=== PATIENT | female | born 1990 | race American Indian/Alaskan Native ===

== ENCOUNTER 2016-12-07 07:08 | Inpatient (IN) | payer MEDICAID, SELFPAY ==
[2016-12-07] MEDS ORDERED: Ondansetron 4 MG/2 ML SDV IVPUSH PRN (07:33)
[2016-12-07] MEDS ORDERED: Nalbuphine 20 MG/1 ML Amp IVPUSH PRN (07:33)
[2016-12-07] MEDS ORDERED: Sodium Chloride 0.9% 10 ML Syringe FLUSH PRN (07:33)
--- NOTE | 2016-12-07 07:35 | PCM.LDHP ---
L&D History of Present Illness - General Date of Service: 12/07/16 Admit Problem/Dx: Patient Status Order with Admit Dx/Problem 12/07/16 07:33 Patient Status [ADT] Routine Admission Diagnosis/Problem Admission Diagnosis/Problem Normal labor Source of Information: Patient History Limitations: Reports: No Limitations - History of Present Illness Introduction:: Patient is a 26 y/o presenting at 38 2/7 wks in labor. Contractions started earlier this AM. Was closed in clinic last week and now 4 cm per nursing report. otherwise uncomplicated. - Related Data Allergies/Adverse Reactions: Allergies Allergy/AdvReac Type Severity Reaction Status Date / Time No Known Allergies Allergy Verified 11/22/14 18:37 Home Medications: Home Meds PNV95/Ferrous Fumarate/FA [ Multivitamins] 1 each PO DAILY 11/23/14 [ History] Ferrous Sulfate 325 mg PO WITHBREAKFAST tablet 11/24/14 [Rx] Ibuprofen [Motrin] 600 mg PO Q4H PRN #30 tablet 11/24/14 [Rx] Lanolin [Lansinoh HPA] 1 applic TOP ASDIRECTED PRN #30 crm 11/24/14 [Rx] Past Medical History - Past Health History Medical/Surgical History: Denies Medical/Surgical History [employer] History: Reports: : 5 Para: 4 LMP (Approximate): Social & Family History - Tobacco Use Smoking Status *Q: Never Smoker Second Hand Smoke Exposure: No - Alcohol Use Alcohol Use History: No Days Per Week of Alcohol Use: 0 - Recreational Drug Use Recreational Drug Use: No H&P Review of Systems - Review of Systems: Review Of Systems: See Below General: Reports: No Symptoms Pulmonary: Reports: No Symptoms Cardiovascular: Reports: No Symptoms Gastrointestinal: Reports: No Symptoms Genitourinary: Reports: No Symptoms Musculoskeletal: Reports: No Symptoms L&D Exam - Exam Exam: See Below - Vital Signs Weight: 74.979 kg - OB Specific Contraction Intensity: Moderate Movement: Active Heart Tones: Present Heart Tones per Min: 145 Heart Rate (FHR) Variability: Moderate (6-25 bmp) Presentation: Vertex - Pradhan Score Pradhan Score Cervix Position: Midposition Pradhan Score Consistency: Soft Pradhan Score Effacement: 51-70% Pradhan Score Dilation: 3-4 cm (Per nursing) Pradhan Score 's Station: -2 Pradhan Score Total: 8 - Exam General: Alert, Oriented, Cooperative Lungs: Clear to Auscultation, Normal Respiratory Effort Cardiovascular: Regular Rate, Regular Rhythm GI/Abdominal Exam: Soft, Non-Tender Genitourinary: Normal external exam Extremities: Normal Inspection Skin: Warm, Dry, Intact - Problem List (1) 38 weeks gestation of SNOMED Code(s): 41825038 ICD Code: Z3A.38 - 38 WEEKS GESTATION OF Status: Acute Current Visit: Yes (2) Active labor SNOMED Code(s): 64259156 ICD Code: [id number] - Status: Acute Current Visit: No Problem List Initiated/Reviewed/Updated: Yes Orders Last 24hrs: Active Orders 24 hr Category Date Time Status Patient Status [ADT] Routine ADT 12/07/16 07:33 Ordered Activity as Tolerated [RC] PFP Care 12/07/16 07:33 Ordered Communication Order [RC] ASDIRECTED Care 12/07/16 07:33 Ordered Heart Tones [RC] ASDIRECTED Care 12/07/16 07:33 Ordered Notify Provider [RC] PFP Care 12/07/16 07:33 Ordered Notify Provider [RC] PRN Care 12/07/16 07:33 Ordered Peripheral IV Care [RC] . DIRECTED Care 12/07/16 07:33 Ordered Vital Signs [RC] PER UNIT ROUTINE Care 12/07/16 07:33 Ordered Regular Diet [DIET] Diet 12/07/16 Breakfast Ordered CBC W/O DIFF,HEMOGRAM [HEME] Stat Lab 12/07/16 07:33 Ordered TYPE AND SCREEN [BBK] Stat Lab 12/07/16 07:33 Ordered Lactated Ringers [Ringers, Lactated] 1,000 ml Med 12/07/16 07:45 Ordered IV ASDIRECTED Nalbuphine [Nubain] Med 12/07/16 07:33 Ordered 10 mg IVPUSH Q2H PRN Ondansetron [Zofran] Med 12/07/16 07:33 Ordered 4 mg IVPUSH Q4H PRN Oxytocin/Lactated Ringers [Pitocin in LR 10 Units/1,000 Med 12/07/16 07:45 Ordered ML] 10 unit in 1,000 ml IV .CONTINUOUS Sodium Chloride 0.9% [Saline Flush] Med 12/07/16 07:33 Ordered 10 ml FLUSH ASDIRECTED PRN Electronic Heart Tones Ext w TOCO [WOMSER] Oth 12/07/16 07:33 Ordered Routine Electronic Heart Tones Internal [WOMSER] Per Unit Ot 12/07/16 07:33 Ordered Routine Peripheral IV Insertion Adult [OM.PC] Routine Ot 12/07/16 07:33 Ordered Resuscitation Status Routine Resus Stat 12/07/16 07:33 Ordered Assessment/Plan Comment:: 26 y/o at 38 2/7 wks presents in labor * CBC and T&S * GBS negative, no need for antibiotics * Prefers epidural for pain management * Anticipate
[2016-12-07] MEDS ORDERED: Lactated Ringers 1,000 ML IV SCH (07:45)
[2016-12-07] MEDS ORDERED: Oxytocin/Lactated Ringers 10 UNIT/1,000 ML BAG IV SCH (07:45)
--- NOTE | 2016-12-07 11:42 | PCM.DEL ---
L & D Note - General Info Date of Service: 12/07/16 - Delivery Note Labor: Spontaneous Delivery Outcome: Livebirth Delivery Method: Spontaneous Vaginal Delivery Delivery Mode: Spontaneous Presentation: Right Occiput Anterior (KEESHA) Nuchal Cord: None Anesthesia Type: None Amniotic Fluid Description: Clear Episiotomy Type: None Laceration: None Placenta: Intact, Spontaneous Cord: 3 Vessels Estimated Blood Loss: 300 Score 1 min: 8 Score 5 min: 9 Delivery Comments (Free Text/Narrative):: Patient found to be complete and began pushing. With maternal pushing effort head delivered from an KEESHA presentation. No nuchal cord present. With gentle downward traction the shoulders and body delivered. Infant placed on maternal abdomen. Cord clamped and cut. Cord blood obtained. Placenta allowed time to separate and expelled. Inspection of the perineum showed no lacerations - Patient Data Vitals - Most Recent: Last Vital Signs Temp 36.4 C 12/07/16 07:33 Pulse 76 12/07/16 07:33 Resp 18 12/07/16 07:33 BP 125/73 12/07/16 07:33 Pulse Ox Weight - Most Recent: 74.979 kg Lab Results Last 24 Hours: Laboratory Results - last 24 hr 12/07/16 12/07/16 Range/Units 07:50 07:50 WBC 8.50 (3.98-10.04) K/mm3 RBC 3.84 L (3.98-5.22) M/mm3 Hgb 10.9 L (11.2-15.7) gm/L Hct 32.9 L (34.1-44.9) % MCV 85.7 (79.4-94.8) fl MCH 28.4 (25.6-32.2) pg MCHC 33.1 (32.2-35.5) g/dl RDW Std Deviation 50.3 H (36.4-46.3) fL Plt Count 161 L (182-369) K/mm3 MPV 11.4 (9.4-12.3) fl Blood Type O POSITIVE Gel Antibody Screen Negative Med Orders - Current: Current Medications Lactated Ringer's (Ringers, Lactated) 1,000 mls @ 100 mls/hr IV ASDIRECTED CRISTINO Last Admin: 12/07/16 07:57 Dose: 500 mls/hr Oxytocin/Lactated Ringer's (Pitocin In Lr 10 Units/1,000 Ml) 10 unit in 1,000 mls @ 500 mls/hr IV .CONTINUOUS CRISTINO Last Admin: 12/07/16 11:26 Dose: 500 mls/hr Nalbuphine HCl (Nubain) 10 mg IVPUSH Q2H PRN PRN Reason: Pain (moderate 4-6) Ondansetron HCl (Zofran) 4 mg IVPUSH Q4H PRN PRN Reason: Nausea/Vomiting Sodium Chloride (Saline Flush) 10 ml FLUSH ASDIRECTED PRN PRN Reason: Keep Vein Open - Problem List & Annotations (1) 38 weeks gestation of SNOMED Code(s): 90603132 Code(s): Z3A.38 - 38 WEEKS GESTATION OF Status: Acute Current Visit: Yes (2) Active labor SNOMED Code(s): 51840879 Code(s): GEQ1829 - Status: Acute Current Visit: No (3) Vaginal delivery SNOMED Code(s): 152956375 Code(s): O80 - ENCOUNTER FOR FULL-TERM UNCOMPLICATED DELIVERY Status: Acute Current Visit: Yes - Problem List Review Problem List Initiated/Reviewed/Updated: Yes - My Orders Last 24 Hours: My Active Orders 12/07/16 07:33 Patient Status [ADT] Routine Activity as Tolerated [RC] PFP Communication Order [RC] ASDIRECTED Heart Tones [RC] ASDIRECTED Notify Provider [RC] PFP Notify Provider [RC] PRN Peripheral IV Care [RC] . DIRECTED Vital Signs [RC] PER UNIT ROUTINE Nalbuphine [Nubain] 10 mg IVPUSH Q2H PRN Ondansetron [Zofran] 4 mg IVPUSH Q4H PRN Sodium Chloride 0.9% [Saline Flush] 10 ml FLUSH ASDIRECTED PRN Electronic Heart Tones Ext w TOCO [WOMSER] Routine Electronic Heart Tones Internal [WOMSER] Per Unit Routine Peripheral IV Insertion Adult [OM.PC] Routine Resuscitation Status Routine 12/07/16 07:45 Lactated Ringers [Ringers, Lactated] 1,000 ml IV ASDIRECTED Oxytocin/Lactated Ringers [Pitocin in LR 10 Units/1,000 ML] 10 unit in 1,000 ml IV .CONTINUOUS 12/07/16 11:37 Patient Status Manage Transfer [TRANSFER] Routine 12/07/16 Breakfast Regular Diet [DIET] - Assessment Assessment:: 26 y/o G5 now P5005 PPD#0 from at 38 2/7 wks - Plan Plan:: * Routine cares * Encourage breast feeding * Discharge home in 1-2 days
[2016-12-07] MEDS ORDERED: Acetaminophen 325 MG Tab PO PRN (11:46)
[2016-12-07] MEDS ORDERED: Docusate Sodium 100 MG Cap PO PRN (11:46)
[2016-12-07] MEDS ORDERED: Lanolin 100% Cream 7 GM Tube TOP PRN (11:46)
[2016-12-07] MEDS ORDERED: Witch Hazel Medicated Pads 100/Jar TOP PRN (11:46)
[2016-12-07] MEDS ORDERED: Benzocaine/Menthol 20%-0.5% Spray 56 GM Canister TOP PRN (11:46)
[2016-12-07] MEDS: Ibuprofen 600 MG Tab PO PRN ×2 (12:24→20:16)
--- NOTE | 2016-12-08 07:39 | PCM.DCSUM1 ---
Discharge Summary - Discharge Data Discharge Date: 12/08/16 Discharge Disposition: Home, Self-Care 01 Condition: Good - Discharge Diagnosis/Problem(s) (1) 38 weeks gestation of SNOMED Code(s): 34145712 ICD Code: Z3A.38 - 38 WEEKS GESTATION OF Status: Acute Current Visit: Yes (2) Active labor SNOMED Code(s): 75809102 ICD Code: [id number] - Status: Acute Current Visit: No (3) Vaginal delivery SNOMED Code(s): 841435517 ICD Code: O80 - ENCOUNTER FOR FULL-TERM UNCOMPLICATED DELIVERY Status: Acute Current Visit: Yes - Patient Summary/Data Complications: None Consults: None Recommended Follow-up Testing/Procedures: Follow up in 5-6 weeks for check Hospital Course: 26 y/o presented at 38 2/7 wks presented in labor. She did well without the need for augmentation. She underwent an uncomplicated . See delivery note. she did well and was discharged home on PPD#1 - Patient Instructions Diet: Regular Diet as Tolerated Activity: As Tolerated Activity, Other: Pelvic Rest for 6 weeks Driving: May Drive Today Showering/Bathing: May Shower Showering/Bathing, Other: May Bathe Notify Provider of: Fever, Increased Pain, Swelling and Redness, Drainage, Nausea and/or Vomiting - Discharge Plan Home Medications: Home Meds PNV95/Ferrous Fumarate/FA [ Multivitamins] 1 each PO DAILY 11/23/14 [ History] Docusate Sodium [Colace] 100 mg PO BID PRN cap 12/07/16 [Rx] Ibuprofen [IJD: Ibuprofen] 600 mg PO Q6H PRN tablet 12/07/16 [Rx] Referrals: Mauricio Rodriguez MD [Primary Care Provider] - (5 weeks for check ) - Discharge Summary/Plan Comment DC Time >30 min.: No - Patient Data Vitals - Most Recent: Last Vital Signs Temp 36.7 C 12/08/16 03:38 Pulse 74 12/08/16 03:38 Resp 16 12/08/16 03:38 BP 108/74 12/08/16 03:38 Pulse Ox 99 12/08/16 03:38 Weight - Most Recent: 74.979 kg I&O - Last 24 hours: Intake & Output 12/07/16 12/08/16 12/08/16 22:59 06:59 14:59 Intake Total 240 Balance 240 Lab Results - Last 24 hrs: Laboratory Results - last 24 hr 12/07/16 12/07/16 Range/Units 07:50 07:50 WBC 8.50 (3.98-10.04) K/mm3 RBC 3.84 L (3.98-5.22) M/mm3 Hgb 10.9 L (11.2-15.7) gm/L Hct 32.9 L (34.1-44.9) % MCV 85.7 (79.4-94.8) fl MCH 28.4 (25.6-32.2) pg MCHC 33.1 (32.2-35.5) g/dl RDW Std Deviation 50.3 H (36.4-46.3) fL Plt Count 161 L (182-369) K/mm3 MPV 11.4 (9.4-12.3) fl Blood Type O POSITIVE Gel Antibody Screen Negative Med Orders - Current: Current Medications Acetaminophen (Tylenol) 650 mg PO Q4H PRN PRN Reason: mild pain or fever Benzocaine/Menthol (Dermoplast Pain Relief [place]) 0 gm TOP ASDIRECTED PRN PRN Reason: Perineal Comfort Measure Docusate Sodium (Colace) 100 mg PO BID PRN PRN Reason: Constipation Emollient Ointment (Lansinoh Hpa) 0 gm TOP ASDIRECTED PRN PRN Reason: Sore Nipples Ibuprofen (Motrin) 600 mg PO Q6H PRN PRN Reason: Mild pain or fever Last Admin: 12/07/16 20:16 Dose: 600 mg Witch Faye (Tucks) 1 pad TOP ASDIRECTED PRN PRN Reason: Hemorrhoid pain Discontinued Medications Lactated Ringer's (Ringers, Lactated) 1,000 mls @ 100 mls/hr IV ASDIRECTED CRISTINO Last Admin: 12/07/16 07:57 Dose: 500 mls/hr Oxytocin/Lactated Ringer's (Pitocin In Lr 10 Units/1,000 Ml) 10 unit in 1,000 mls @ 500 mls/hr IV .CONTINUOUS CRISTINO Last Admin: 12/07/16 11:26 Dose: 500 mls/hr Nalbuphine HCl (Nubain) 10 mg IVPUSH Q2H PRN PRN Reason: Pain (moderate 4-6) Ondansetron HCl (Zofran) 4 mg IVPUSH Q4H PRN PRN Reason: Nausea/Vomiting Sodium Chloride (Saline Flush) 10 ml FLUSH ASDIRECTED PRN PRN Reason: Keep Vein Open *Q Meaningful Use (DIS) - VTE *Q VTE Criteria *Q: - Stroke *Q Stroke Criteria *Q: - AMI *Q AMI Criteria *Q:
--- NOTE | 2016-12-08 07:39 | PCM.PNPP ---
- General Info Date of Service: 12/08/16 Functional Status: Reports: Pain Controlled, Tolerating Diet, Ambulating, Urinating - Review of Systems General: Reports: No Symptoms Pulmonary: Reports: No Symptoms Cardiovascular: Reports: No Symptoms Gastrointestinal: Reports: No Symptoms Genitourinary: Reports: No Symptoms Musculoskeletal: Reports: No Symptoms Neurological: Reports: No Symptoms - Patient Data Vital Signs - Most Recent: Last Vital Signs Temp 36.7 C 12/08/16 03:38 Pulse 74 12/08/16 03:38 Resp 16 12/08/16 03:38 BP 108/74 12/08/16 03:38 Pulse Ox 99 12/08/16 03:38 Weight - Most Recent: 74.979 kg I&O - Last 24 Hours: Intake & Output 12/07/16 12/08/16 12/08/16 22:59 06:59 14:59 Intake Total 240 Balance 240 Lab Results - Last 24 Hours: Laboratory Results - last 24 hr 12/07/16 12/07/16 Range/Units 07:50 07:50 WBC 8.50 (3.98-10.04) K/mm3 RBC 3.84 L (3.98-5.22) M/mm3 Hgb 10.9 L (11.2-15.7) gm/L Hct 32.9 L (34.1-44.9) % MCV 85.7 (79.4-94.8) fl MCH 28.4 (25.6-32.2) pg MCHC 33.1 (32.2-35.5) g/dl RDW Std Deviation 50.3 H (36.4-46.3) fL Plt Count 161 L (182-369) K/mm3 MPV 11.4 (9.4-12.3) fl Blood Type O POSITIVE Gel Antibody Screen Negative Med Orders - Current: Current Medications Acetaminophen (Tylenol) 650 mg PO Q4H PRN PRN Reason: mild pain or fever Benzocaine/Menthol (Dermoplast Pain Relief [place]) 0 gm TOP ASDIRECTED PRN PRN Reason: Perineal Comfort Measure Docusate Sodium (Colace) 100 mg PO BID PRN PRN Reason: Constipation Emollient Ointment (Lansinoh Hpa) 0 gm TOP ASDIRECTED PRN PRN Reason: Sore Nipples Ibuprofen (Motrin) 600 mg PO Q6H PRN PRN Reason: Mild pain or fever Last Admin: 12/07/16 20:16 Dose: 600 mg Witch Faye (Tucks) 1 pad TOP ASDIRECTED PRN PRN Reason: Hemorrhoid pain Discontinued Medications Lactated Ringer's (Ringers, Lactated) 1,000 mls @ 100 mls/hr IV ASDIRECTED CRISTINO Last Admin: 12/07/16 07:57 Dose: 500 mls/hr Oxytocin/Lactated Ringer's (Pitocin In Lr 10 Units/1,000 Ml) 10 unit in 1,000 mls @ 500 mls/hr IV .CONTINUOUS CRISTINO Last Admin: 12/07/16 11:26 Dose: 500 mls/hr Nalbuphine HCl (Nubain) 10 mg IVPUSH Q2H PRN PRN Reason: Pain (moderate 4-6) Ondansetron HCl (Zofran) 4 mg IVPUSH Q4H PRN PRN Reason: Nausea/Vomiting Sodium Chloride (Saline Flush) 10 ml FLUSH ASDIRECTED PRN PRN Reason: Keep Vein Open - Interaction Infant Disposition, : in Room with Family Infant Interaction: Holding Infant Infant Feeding: Breastfed Infant; Nursed Well Support Person: - Recovery Exam Fundal Tone: Firm Fundal Level: 1 Fingerbreadths Below Umbilicus Fundal Placement: Midline Lochia Amount: Moderate Lochia Color: Rubra/Red Perineum Description: Intact, Minimal Bruising/Swelling Episiotomy/Laceration: None Bladder Status: Voiding Urinary Elimination: Voided - Exam General: Alert, Oriented, Cooperative GI/Abdominal Exam: Soft, Non-Tender Extremities: Normal Inspection Skin: Warm, Dry, Intact - Problem List & Annotations (1) 38 weeks gestation of SNOMED Code(s): 48762546 Code(s): Z3A.38 - 38 WEEKS GESTATION OF Status: Acute Current Visit: Yes (2) Active labor SNOMED Code(s): 32252925 Code(s): VZP0986 - Status: Acute Current Visit: No (3) Vaginal delivery SNOMED Code(s): 211518150 Code(s): O80 - ENCOUNTER FOR FULL-TERM UNCOMPLICATED DELIVERY Status: Acute Current Visit: Yes - Problem List Review Problem List Initiated/Reviewed/Updated: Yes - My Orders Last 24 Hours: My Active Orders 12/07/16 07:33 Heart Tones [RC] ASDIRECTED Peripheral IV Care [RC] . DIRECTED Resuscitation Status Routine 12/07/16 11:46 Activity as Tolerated [RC] Vital Signs [RC] 12,20,04 Acetaminophen [Tylenol] 650 mg PO Q4H PRN Benzocaine/Menthol [Dermoplast Pain Relief [place]] See Dose Instructions TOP ASDIRECTED PRN Docusate Sodium [Colace] 100 mg PO BID PRN Ibuprofen [Motrin] 600 mg PO Q6H PRN Lanolin [Lansinoh HPA] See Dose Instructions TOP ASDIRECTED PRN Witch Faye [Tucks] 1 pad TOP ASDIRECTED PRN Assess Lochia [WOMSER] Per Unit Routine Assess Uterine Involution [WOMSER] Per Unit Routine Breast Pump [WOMSER] Per Unit Routine Heat Therapy [OM.PC] PRN Ice Therapy [OM.PC] Per Unit Routine Perineal Care [OM.PC] Per Unit Routine Peripheral IV Discontinue [OM.PC] Routine Sitz Bath [OM.PC] Per Unit Routine 12/07/16 Lunch Regular Diet [DIET] 12/08/16 11:46 Heat Therapy [OM.PC] PRN - Assessment Assessment:: 26 y/o G5 now P5005 PPD#1 from at 38 2/7 wks - Plan Plan:: * Routine cares * Encourage breast feeding * Discharge home today
[2016-12-08] MEDS: Ibuprofen 600 MG Tab PO PRN (08:55)
[2016-12-08 09:30] VITALS: BP 107/58
== END 2016-12-08 12:20 | disposition home or self-care (01) | DRG 775 ==
LOC: JD.OBCHECK 07:08 → JD.OB 07:08 → JD.OBCHECK 07:32 → JD.OB 07:33 → OBSVTOIN 11:24
PROVIDERS: ADMIT Obstetrics & Gynecology; ATTEND Obstetrics & Gynecology
PROC: 10E0XZZ Delivery of Products of Conception, External Approach (ICD-10-PCS; principal; 2016-12-07)
DX: O80 Encounter for full-term uncomplicated delivery (principal); Z3A.38 38 weeks gestation of pregnancy; Z37.0 Single live birth
CPT/HCPCS: 36415; 85027; 86850; 86900; 86901; A9270-GY; J2590; J7120